=== PATIENT | male | born 1990 | race Hispanic/Latino ===

== ENCOUNTER 2021-11-29 10:31 | Emergency (ER) | payer SELFPAY ==
[~2021-11-29] VITALS: Ht 172.7 cm; Wt 77.1 kg
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
== END 2021-11-29 16:00 | disposition home or self-care (01) ==
LOC: ED 10:31 → EDBD 10:32 → ED 10:32
DX: S71.142A Puncture wound with foreign body, left thigh, initial encounter (principal); S84.12XA Injury of peroneal nerve at lower leg level, left leg, initial encounter; W34.09XA Accidental discharge from other specified firearms, initial encounter
CPT/HCPCS: 36415; 73552; 73590; 73706; 80053; 82150; 82553; 82803; 83690; 85025; 86850; 86900; 86901; 90471; 90715; 99285-25; G0480; Q9967